=== PATIENT | female | born 2000 | race Caucasian/White ===

== ENCOUNTER 2023-04-19 13:00 | Outpatient (AMB) | payer MEDICAID, SELFPAY ==
--- NOTE | 2023-04-19 13:35 | MHC.OFFVIS ---
Intake Vital Signs 04/19/23 13:36 BP 100/70 Blood Pressure Location Lt brachial Position Sitting Pulse 70 Pulse Oximetry (%) 99 Intake Visit Reasons: MAT INTAKE, interested in sublocade Allergies No Known Allergies Allergy (Unverified 06/11/20 18:17) MAT Intake Nursing Intake Reason for visit: Pt presents for MAT Intake, interested in Sublocade. Pt started on Suboxone 2mg qd last week at [facility]. Are you currently using?: Yes What are you taking?: Fentanyl pressed pills When was your last use?: 4 days ago How much?: 1 pill, typically 10-15 pills daily, and/or 1 gram fentanyl rock (pre pressed fentanyl powder) Current PCP: In [place], [place] Date of last visit: Last year Referral Source: [facility] Substance Abuse History Substance Abuse History (includes route, frequency and quantity): Fentanyl (Fentanyl pressed pills or rock 1 gram to 10-15 pills daily, past 5 years, decreased use past 3 weeks, [place]) Age of first use: 17 years old Social History Do you have a support system?: Yes, Father Current mode of transportation?: Yes, Father Where are you currently residing?: [place], lives with Father Are you using contraception?: No IV Drug Use Have you ever shared needles?: No Have you ever belonged to a needle exchange program?: No Do you buy needles at a pharmacy?: No Have you ever overdosed?: Yes Number of lifetime overdoses: 1 Have you ever been hospitalized for an overdose?: No Was Naloxone administered?: Yes Recovery History What is your longest time in recovery?: Pt reports past 2-3 months, cut down alot, 2-3 pills daily When was the last time you were in recovery?: 2-3 months decreased udse Have you ever had inpatient treatment for your substance abuse disorder?: No Have you been in an inpatient Rehab/Shelter house?: No Have you been in an outpatient Methadone Maintenance program?: No Have you been in an outpatient Suboxone Maintenance program?: Yes (Pt reports in the past was on BUP films in [facility]) Have you been in an AA/NA support program?: No Have you had a Recovery Support Nut Sheller Machine Operator?: No Have you had Peer Support?: Yes (Pt states Dad supportive of recovery) Behavioral Health History Do you have a current provider? If so, who?: None BH diagnosis: None History of other addictive behavior: None History of inpatient psychiatric hospitalization? If so, how many? Most Recent? Where?: None History of self harming thoughts?: No History of homicidal or suicidal intentions?: No Medical Conditions Endocarditis?: No Skin Infection: No Seizure related to withdrawal or overdose: No Head or brain injury: No Hepatitis A (if yes, have you been treated?): No Hepatitis B (if yes, have you been treated?): No Hepatitis C (if yes, have you been treated?): No HIV (if yes, have you been treated?): No TB (if yes, have you been treated?): No Other: Yes (Heart disease; seizure d/o) Do you have any chronic pain conditions?: None Details: Current meds: 2mg BUP qd hydroxyzine 25mg TID Pramipexole 0.125 mg tablet TID HPI MAT INTAKE, interested in sublocade HPI Details Patient presents for intake and evaluation 4-5 days since last use. Had been started on Suboxone 2 mg b.i.d. at a not other clinic. She reports ongoing withdrawal symptoms and cravings. Patient somewhat guarded and appearing anxious. 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 Unsure with those medications are. States that she stop taking medications once she turned 17. Social history: one child 5 years- not working --just moved back here from [facility]--father. Lives with her father. Behavioral health history: Reports history of being treated for possibly PTSD, patient does not recall but states this was all occurring when she was a teenager. Review of Systems Const Reports as per HPI, Reports body aches, Reports lethargy and Reports malaise Physical Exam Vital Signs: Last Vital Signs Pulse 70 04/19/23 13:36 BP 100/70 04/19/23 13:36 Pulse Ox 99 04/19/23 13:36 Const General: cooperative and anxious Nutritional Appearance: thin Orientation/consciousness: patient oriented x3 Neuro General: patient oriented x3 Psych Appearance: grossly normal Speech and movement: Clear speech present Affect: Anxious affect present Attitude: cooperative and Guarded attititude/behavior present Insight: Fair insight present (Psych) Judgement: Fair judgement present (Psych) Results AMB 14 Panel Urine Drug Screen Urine Marijuana (THC) Negative Last Edit by Ilda Callaway RN on 04/19/23 15:19 Urine Cocaine Negative Last Edit by Ilda Callaway RN on 04/19/23 15:19 Urine Morphine Negative Last Edit by Ilda Callaway RN on 04/19/23 15:19 Urine Methamphetamine Negative Last Edit by Ilda Callaway RN on 04/19/23 15:19 Urine Amphetamine Negative Last Edit by Ilda Callaway RN on 04/19/23 15:19 Urine Benzodiazepine Negative Last Edit by Ilda Callaway RN on 04/19/23 15:19 Urine Barbiturates Negative Last Edit by Ilda Callaway RN on 04/19/23 15:19 Urine Methadone Negative Last Edit by Ilda Callaway RN on 04/19/23 15:19 Urine Buprenorphine Positive Last Edit by Ilda Callaway RN on 04/19/23 15:19 Urine Tricyclic Antidepressant Negative Last Edit by Ilda Callaway RN on 04/19/23 15:19 Urine MDMA Negative Last Edit by Ilda Callaway RN on 04/19/23 15:19 Urine Oxycodone Negative Last Edit by Ilda Callaway RN on 04/19/23 15:19 Urine Phencyclidine Negative Last Edit by Ilda Callaway RN on 04/19/23 15:19 Urine Propoxyphene Negative Last Edit by Ilda Callaway RN on 04/19/23 15:19 Results Reviewed Results Reviewed: Laboratory Last Values POC Urine Buprenorphine Positive 04/19/23 15:14 POC Urine Morphine Negative 04/19/23 15:14 POC Urine Oxycodone Negative 04/19/23 15:14 POC Urine Methadone Negative 04/19/23 15:14 POC Urine Propoxyphene Negative 04/19/23 15:14 POC Urine Barbiturates Negative 04/19/23 15:14 POC U Tricyclic Antidpr Negative 04/19/23 15:14 POC Urine PCP Negative 04/19/23 15:14 POC Ur Amphetamines Negative 04/19/23 15:14 POC Ur Methamphetamine Negative 04/19/23 15:14 POC Urine MDMA Negative 04/19/23 15:14 POC Ur Benzodiazepine Negative 04/19/23 15:14 POC Urine Cocaine Negative 04/19/23 15:14 POC Ur Marijuana (THC) Negative 04/19/23 15:14 Assessment & Plan Assessment & Plan (1) Opioid use disorder: Code(s): F11.90 - Opioid use, unspecified, uncomplicated Plan: Suboxone dose increase to 4 mg b.i.d. Overdose prevention discussion Lab work to be completed at next visit Patient has Narcan at home Orders: Orders AMB 14 Panel Urine Drug Screen 04/19/23 Z51.81 - Encounter for therapeutic drug level monitoring Medications: New buprenorphine-naloxone 4-1 mg (Suboxone) 1 film sublingual BID 6 ea 0RF pramipexole 0.125 mg PO TID PRN 21 tabs 0RF restless leg(s) Coding Level of Care Code New Pt Level 4 (45975) Diagnoses Opioid use disorder F11.90
[2023-04-19 13:36] VITALS: BP 100/70; PULSE 70; O2SAT 99
== END 2023-04-19 14:04 | disposition home or self-care (01) ==
LOC: HO.HCC 13:00
PROVIDERS: Visit Provider Nurse Practitioner Psychiatric/Mental Health
DX: F11.90 Opioid use, unspecified, uncomplicated (principal)
CPT/HCPCS: 99204

== ENCOUNTER → 2023-04-19 13:00 | Outpatient (BNVA) | payer OTHER, SELFPAY | PROVIDERS: Visit Provider Nurse Practitioner Psychiatric/Mental Health | DX: Z51.81 Encounter for therapeutic drug level monitoring (principal); F11.20 Opioid dependence, uncomplicated | CPT/HCPCS: 80305; 99204 ==

== ENCOUNTER 2023-08-30 10:26 | Outpatient (AMB) | payer OTHER, SELFPAY ==
--- NOTE | 2023-08-30 10:30 | MHC.AM.SUB ---
Intake Vital Signs 08/30/23 10:31 BP 110/72 Blood Pressure Location Lt radial Position Sitting Pulse 99 Pulse Source Pulse Oximeter Pulse Oximetry (%) 99 Oxygen Delivery Method Room Air Intake Visit Reasons: mat intake Intake Note: the patient presents for a mat visit Government Operations Consultant Required: No Allergies No Known Allergies Allergy (Unverified 08/30/23 10:31) Do you need a note to return to daycare/school/sports/work: No HPI mat intake HPI Details Patient presents to re-establish care for OUD Last use 4 days ago --body aches and runny nose and teary eyes no overdoses since last visit LMP 2 months ago Living with father. Her son is staying with her mother in [place]. Tearful during visit. Reporting her goal is to transition to Sublocade Review of Systems Const Reports as per HPI, Reports chills, Reports difficulty sleeping, Reports lethargy and Reports malaise Psych Reports anxiety and Reports anhedonia Physical Exam Vital Signs: Last Vital Signs Pulse 99 08/30/23 10:31 BP 110/72 08/30/23 10:31 Pulse Ox 99 08/30/23 10:31 Oxygen Delivery Method Room Air 08/30/23 10:31 Const General: cooperative, anxious and tired appearing Nutritional Appearance: average body habitus Psych Insight: Fair insight present (Psych) Judgement: Fair judgement present (Psych) Results AMB 14 Panel Urine Drug Screen Urine Marijuana (THC) Negative Last Edit by Zee Stovall CMA on 08/30/23 10:57 Urine Cocaine Negative Last Edit by Zee Stovall CMA on 08/30/23 10:57 Urine Morphine Negative Last Edit by Zee Stovall CMA on 08/30/23 10:57 Urine Methamphetamine Negative Last Edit by Zee Stovall CMA on 08/30/23 10:57 Urine Amphetamine Negative Last Edit by Zee Stovall CMA on 08/30/23 10:57 Urine Benzodiazepine Negative Last Edit by Zee Stovall CMA on 08/30/23 10:57 Urine Barbiturates Negative Last Edit by Zee Stovall CMA on 08/30/23 10:57 Urine Methadone Negative Last Edit by Zee Stovall CMA on 08/30/23 10:57 Urine Buprenorphine Negative Last Edit by Zee Stovall CMA on 08/30/23 10:57 Urine Tricyclic Antidepressant Negative Last Edit by Zee Stovall CMA on 08/30/23 10:57 Urine MDMA Negative Last Edit by Zee Stovall CMA on 08/30/23 10:57 Urine Oxycodone Negative Last Edit by Zee Stovall CMA on 08/30/23 10:57 Urine Phencyclidine Negative Last Edit by Zee Stovall CMA on 08/30/23 10:57 Urine Propoxyphene Negative Last Edit by Zee Stovall CMA on 08/30/23 10:57 AMB Test Urine AMB Test Urine Negative Last Edit by Zee Stovall CMA on 08/30/23 10:58 Results Reviewed Results Reviewed: Laboratory Last Values [facility] Negative 08/30/23 10:53 POC Urine Buprenorphine Negative 08/30/23 10:53 POC Urine Morphine Negative 08/30/23 10:53 POC Urine Oxycodone Negative 08/30/23 10:53 POC Urine Methadone Negative 08/30/23 10:53 POC Urine Propoxyphene Negative 08/30/23 10:53 POC Urine Barbiturates Negative 08/30/23 10:53 POC U Tricyclic Antidpr Negative 08/30/23 10:53 POC Urine PCP Negative 08/30/23 10:53 POC Ur Amphetamines Negative 08/30/23 10:53 POC Ur Methamphetamine Negative 08/30/23 10:53 POC Urine MDMA Negative 08/30/23 10:53 POC Ur Benzodiazepine Negative 08/30/23 10:53 POC Urine Cocaine Negative 08/30/23 10:53 POC Ur Marijuana (THC) Negative 08/30/23 10:53 Assessment & Plan Assessment & Plan (1) Opioid use disorder: Code(s): F11.90 - Opioid use, unspecified, uncomplicated Plan: restart suboxone at 4mg BID comfort medications ordered follow up one week Orders: Orders Comprehensive Met. Panel Today F11.90 - Opioid use, unspecified, uncomplicated Hepatitis A,B,C Profile Today F11.90 - Opioid use, unspecified, uncomplicated AMB HCG Urine Test Today Z32.01 - Encounter for test, result positive, Z32.02 - Encounter for test, result negative HIV Ab/Ag Today F11.90 - Opioid use, unspecified, uncomplicated AMB 14 Panel Urine Drug Screen Today Z51.81 - Encounter for therapeutic drug level monitoring Medications: New trazodone 50 mg PO BEDTIME PRN 10 tabs 0RF sleep Refilled buprenorphine-naloxone 4-1 mg (Suboxone) 1 film sublingual BID 14 ea 0RF pramipexole 0.125 mg PO TID PRN 21 tabs 0RF restless leg(s) Coding Level of Care Code Est Pt Level 4 (70723) Diagnoses Opioid use disorder F11.90
[2023-08-30 10:31] VITALS: BP 110/72; PULSE 99; O2SAT 99
== END 2023-08-30 10:47 | disposition home or self-care (01) ==
PROVIDERS: Visit Provider Nurse Practitioner Psychiatric/Mental Health
DX: F11.90 Opioid use, unspecified, uncomplicated (principal)
CPT/HCPCS: 99214

== ENCOUNTER → 2023-08-30 10:26 | Outpatient (BNVA) | payer OTHER, SELFPAY | PROVIDERS: Visit Provider Nurse Practitioner Family | DX: Z51.81 Encounter for therapeutic drug level monitoring (principal); F11.20 Opioid dependence, uncomplicated | CPT/HCPCS: 80305; 81025; 99212 ==

== ENCOUNTER 2023-09-06 10:44 | Outpatient (AMB) | payer OTHER, SELFPAY ==
--- NOTE | 2023-09-06 10:46 | A.OFFVIS_ITS ---
Intake Vital Signs 09/06/23 10:49 BP 124/78 Blood Pressure Location Lt radial Position Sitting Pulse 95 Pulse Source Pulse Oximeter Pulse Oximetry (%) 98 Oxygen Delivery Method Room Air Intake Visit Reasons: MAT VISIT Intake Note: the patient presents for a mat visit Screening Nurse Required: No Allergies No Known Allergies Allergy (Unverified 09/06/23 10:54) Do you need a note to return to daycare/school/sports/work: No HPI MAT VISIT HPI Details Patient presents for follow up Reports feeling somewhat better, but unable to tolerate 4mg BID. She gets very nauseous and vomits. Has zofran, not helpful. Would like to move forward with the injection Review of Systems Const Reports as per HPI Physical Exam Vital Signs: Last Vital Signs Pulse 95 09/06/23 10:49 BP 124/78 09/06/23 10:49 Pulse Ox 98 09/06/23 10:49 Oxygen Delivery Method Room Air 09/06/23 10:49 Const General: cooperative, anxious and tired appearing Nutritional Appearance: average body habitus Psych Insight: Fair insight present (Psych) Judgement: Fair judgement present (Psych) Assessment & Plan Assessment & Plan (1) Opioid use disorder: Code(s): F11.90 - Opioid use, unspecified, uncomplicated Plan: * continue suboxone at current dose --as she can tolerate * Brixadi ordered * follow up via telehealth next week Medications: New buprenorphine ER (Brixadi Monthly) 64 mg (0.18 mL) subcut Q28D 0.18 mL 5RF Refilled buprenorphine-naloxone 4-1 mg (Suboxone) 1 film sublingual BID 14 ea 0RF Coding Level of Care Code Est Pt Level 3 (44392) Diagnoses Opioid use disorder F11.90
[2023-09-06 10:49] VITALS: BP 124/78; PULSE 95; O2SAT 98
== END 2023-09-06 11:28 | disposition home or self-care (01) ==
PROVIDERS: Visit Provider Nurse Practitioner Psychiatric/Mental Health
DX: F11.90 Opioid use, unspecified, uncomplicated (principal)
CPT/HCPCS: 99213

== ENCOUNTER → 2023-09-06 10:44 | Outpatient (BNVA) | payer OTHER, SELFPAY | PROVIDERS: Visit Provider Nurse Practitioner Psychiatric/Mental Health | DX: F11.20 Opioid dependence, uncomplicated (principal) | CPT/HCPCS: 99212 ==

== ENCOUNTER 2023-09-11 09:06 | Outpatient (AMB) | payer OTHER, SELFPAY ==
--- NOTE | 2023-09-11 09:08 | A.OFFVIS_ITS ---
Intake Vital Signs 09/11/23 09:13 BP 110/70 Blood Pressure Location Lt radial Position Sitting Pulse 96 Pulse Source Pulse Oximeter Pulse Oximetry (%) 99 Oxygen Delivery Method Room Air Intake Visit Reasons: MAT VISIT Intake Note: the patient presents fora mat visit Trial Paralegal Required: No Allergies No Known Allergies Allergy (Unverified 09/11/23 09:14) Do you need a note to return to daycare/school/sports/work: No HPI MAT VISIT HPI Details Patient presents for follow up No change to dose Still having difficulty with tolerating PO Buprenorphine Insurance denied Brixadi--will order Sublocade Review of Systems Const Reports as per HPI Physical Exam Vital Signs: Last Vital Signs Pulse 96 09/11/23 09:13 BP 110/70 09/11/23 09:13 Pulse Ox 99 09/11/23 09:13 Oxygen Delivery Method Room Air 09/11/23 09:13 Const General: cooperative, anxious and tired appearing Nutritional Appearance: average body habitus Psych Insight: Fair insight present (Psych) Judgement: Fair judgement present (Psych) Assessment & Plan Assessment & Plan (1) Opioid use disorder: Code(s): F11.90 - Opioid use, unspecified, uncomplicated Plan: * continue suboxone at current dose --as she can tolerate * Sublocade ordered * follow will be scheduled once injection is shipped Coding Level of Care Code Est Pt Level 3 (23578) Diagnoses Opioid use disorder F11.90
[2023-09-11 09:13] VITALS: BP 110/70; PULSE 96; O2SAT 99
== END 2023-09-11 09:35 | disposition home or self-care (01) ==
PROVIDERS: Visit Provider Nurse Practitioner Psychiatric/Mental Health
DX: F11.90 Opioid use, unspecified, uncomplicated (principal)
CPT/HCPCS: 99213

== ENCOUNTER → 2023-09-11 09:06 | Outpatient (BNVA) | payer OTHER, SELFPAY | PROVIDERS: Visit Provider Nurse Practitioner Psychiatric/Mental Health | DX: F11.20 Opioid dependence, uncomplicated (principal) | CPT/HCPCS: 99212 ==

== ENCOUNTER 2023-09-28 09:51 | Outpatient (AMB) | payer OTHER, SELFPAY ==
--- NOTE | 2023-09-28 10:21 | AM.OFFVISNUR ---
Intake Intake Visit Reasons: Sub Inj Allergies No Known Allergies Allergy (Unverified 09/11/23 09:14) Results AMB 14 Panel Urine Drug Screen Urine Marijuana (THC) Negative Last Edit by Nayeli Latif RN on 09/28/23 10:25 Urine Cocaine Negative Last Edit by Nayeli Latif RN on 09/28/23 10:25 Urine Morphine Negative Last Edit by Nayeli Latif RN on 09/28/23 10:25 Urine Methamphetamine Negative Last Edit by Nayeli Latif RN on 09/28/23 10:25 Urine Amphetamine Negative Last Edit by Nayeli Latif RN on 09/28/23 10:25 Urine Benzodiazepine Negative Last Edit by Nayeli Latif RN on 09/28/23 10:25 Urine Barbiturates Negative Last Edit by Nayeli Latif RN on 09/28/23 10:25 Urine Methadone Negative Last Edit by Nayeli Latif RN on 09/28/23 10:25 Urine Buprenorphine Negative Last Edit by Nayeli Latif RN on 09/28/23 10:25 Urine Tricyclic Antidepressant Negative Last Edit by Nayeli Latif RN on 09/28/23 10:25 Urine MDMA Negative Last Edit by Nayeli Latif RN on 09/28/23 10:25 Urine Oxycodone Negative Last Edit by Nayeli Latif RN on 09/28/23 10:25 Urine Phencyclidine Negative Last Edit by Nayeli Latif RN on 09/28/23 10:25 Urine Propoxyphene Negative Last Edit by Nayeli Latif RN on 09/28/23 10:25 Coding Assessment & Plan Assessment & Plan Orders: Orders AMB 14 Panel Urine Drug Screen Today F11.90 - Opioid use, unspecified, uncomplicated AMB HCG Urine Test Today F11.90 - Opioid use, unspecified, uncomplicated
--- NOTE | 2023-09-28 10:25 | AM.OFFVISNUR ---
Intake Intake Visit Reasons: Sub Inj Allergies No Known Allergies Allergy (Unverified 09/11/23 09:14) Results AMB 14 Panel Urine Drug Screen Urine Marijuana (THC) Negative Last Edit by Nayeli Latif RN on 09/28/23 10:25 Urine Cocaine Negative Last Edit by Nayeli Latif RN on 09/28/23 10:25 Urine Morphine Negative Last Edit by Nayeli Latif RN on 09/28/23 10:25 Urine Methamphetamine Negative Last Edit by Nayeli Latif RN on 09/28/23 10:25 Urine Amphetamine Negative Last Edit by Nayeli Latif RN on 09/28/23 10:25 Urine Benzodiazepine Negative Last Edit by Nayeli Latif RN on 09/28/23 10:25 Urine Barbiturates Negative Last Edit by Nayeli Latif RN on 09/28/23 10:25 Urine Methadone Negative Last Edit by Nayeli Latif RN on 09/28/23 10:25 Urine Buprenorphine Negative Last Edit by Nayeli Latif RN on 09/28/23 10:25 Urine Tricyclic Antidepressant Negative Last Edit by Nayeli Latif RN on 09/28/23 10:25 Urine MDMA Negative Last Edit by Nayeli Latif RN on 09/28/23 10:25 Urine Oxycodone Negative Last Edit by Nayeli Latif RN on 09/28/23 10:25 Urine Phencyclidine Negative Last Edit by Nayeli Latif RN on 09/28/23 10:25 Urine Propoxyphene Negative Last Edit by Nayeli Latif RN on 09/28/23 10:25 AMB Test Urine AMB Test Urine Negative Last Edit by Nayeli Latif RN on 09/28/23 10:28 Coding Assessment & Plan Assessment & Plan Orders: Orders AMB 14 Panel Urine Drug Screen Today F11.90 - Opioid use, unspecified, uncomplicated AMB HCG Urine Test Today F11.90 - Opioid use, unspecified, uncomplicated
== END 2023-09-28 11:02 | disposition home or self-care (01) ==
DX: F11.90 Opioid use, unspecified, uncomplicated (principal)

== ENCOUNTER → 2023-09-28 09:51 | Outpatient (BNVA) | payer OTHER, SELFPAY | DX: F11.20 Opioid dependence, uncomplicated (principal) | CPT/HCPCS: 80305; 81025; 96372; Q9992 ==

== ENCOUNTER 2023-10-26 10:01 | Outpatient (AMB) | payer OTHER, SELFPAY ==
--- NOTE | 2023-10-26 10:04 | AM.OFFVISNUR ---
Intake Vital Signs 10/26/23 11:55 BP 100/60 Blood Pressure Location Lt brachial Position Sitting Respiration 19 Pulse 66 Pulse Source Pulse Oximeter Pulse Oximetry (%) 99 Oxygen Delivery Method Room Air Intake Visit Reasons: Sub Inj Allergies No Known Allergies Allergy (Unverified 09/11/23 09:14) Nursing Note Patient here today for sublocade injection. She is smiling, states I have never felt so good, this injection is great! She said she has been sleeping great and was in good spirits. A+O x4, speaking in clear/full sentences. Next visit will see Margarita for check in . Office Meds Sublocade 100 mg/0.5 mL solution,extended release subcutaneous syringe Performing Provider: Mena Padilla NP Performing Location: [facility] Administered by: Madie Mathews RN on 10/26/23 11:54 Dose Route Admin Location Dispensed Lot Number Expiration Date [facility] Guard Range 100 mg subcut RLQ 0.5 mL [id number] 10/26/24 [address]-9 [employer]. Results AMB Test Urine AMB Test Urine Negative Last Edit by Madie Mathews RN on 10/26/23 11:57 Coding Assessment & Plan Assessment & Plan Orders: Orders AMB HCG Urine Test Today F11.90 - Opioid use, unspecified, uncomplicated AMB Buprenorphine Injection - Patient Supplied Today F11.90 - Opioid use, unspecified, uncomplicated
[2023-10-26 11:55] VITALS: BP 100/60; PULSE 66; RESP 19; O2SAT 99
== END 2023-10-26 10:31 | disposition home or self-care (01) ==
DX: F11.90 Opioid use, unspecified, uncomplicated (principal)

== ENCOUNTER → 2023-10-26 10:01 | Outpatient (BNVA) | payer OTHER, SELFPAY | DX: F11.90 Opioid use, unspecified, uncomplicated (principal) | CPT/HCPCS: 81025; 96372; Q9992 ==

== ENCOUNTER 2024-08-30 16:22 | Emergency (ER) | payer OTHER, SELFPAY ==
--- NOTE | ~2024-08-30 | US_ITS ---
EXAMINATION: US OBSTETRICAL ULTRASOUND CLINICAL INFORMATION: Vaginal bleeding COMPARISON: None available. LMP: Unknown. TECHNIQUE: Ultrasound of the maternal pelvis is performed using transabdominal and transvaginal transducers. Transvaginal imaging is performed due to inadequate visualization transabdominally. M-mode Doppler is also performed. FINDINGS: Gestational sac measures 1.0 x 0.4 x 0.8 cm dating to 5 weeks 3 days. No yolk sac is identified. Possible subchorionic hemorrhage only visualized on the endovaginal views. MATERNAL ADNEXA: The right maternal ovary measures 2.2 x 1.4 x 1.9 cm. 1.2 cm cyst The left maternal ovary measures 3.0 x 1.8 x 2.1 cm. There is a corpus luteum. There is no significant maternal adnexal mass. No maternal pelvic ascites. US/US OB pelvic and transvaginal IMPRESSION: Gestational sac dating to 5 weeks 3 days. No yolk sac identified. There is a possible subchorionic hemorrhage. Recommend correlation with short interval ultrasound and serial beta hCG levels. Electronically signed by: Nae Batista MD 08/30/2024 08:40 PM [facility]
[2024-08-30 16:47] VITALS: BP 124/85; PULSE 85; RESP 16; TEMP 37; O2SAT 100; BMI 22.9
--- NOTE | 2024-08-30 16:49 | ED_ITS ---
HPI - General Adult General Chief complaint: Vaginal Bleeding Stated complaint: Miscarriage? Time Seen by Provider: 08/30/24 21:59 Source: patient and old records reviewed Mode of arrival: ambulatory Limitations: no limitations History of Present Illness ED Provider: Slick MARTINEZ narrative: This is a 23-year-old female, past medical history including heart failure, hyperthyroidism, who presents to the hospital for vaginal bleeding. Patient reports that she recently just went to an urgent care per work physical where she found out she was . She has not had an ultrasound, and she does not know how far along she is. Last night she began feeling intense cramping, that she reports feels like menstrual cramps pain, and this morning she had nausea, vomiting she began bleeding heavily. She reports the pain is on the right side of her abdomen, in the right side of her lower back. She felt feverish last night. Patient states that at baseline her periods are very easy, and only lasts 1-3 days, an usually does not have cramps, so this is very unusual for her. She has been having to use menstrual pads. She reports not she had no complications with her 1st , however she was high risk given her heart failure. Patient does have burning with urination and she reports a foul odor, and is aware that she has a UTI which was found at urgent care recently however she has not picked up her antibiotics yet. Patient reports that her partner is unfaithful to her, and has another person at this time, and she is interested in being tested for STDs. Patient has not had any abdominal surgeries. 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 Related Data Previous Rx's ?Medication ?Instructions ?Recorded pramipexole 0.125 mg tablet 0.125 mg PO TID PRN restless 08/30/23 leg(s) #21 tabs trazodone 50 mg tablet 50 mg PO BEDTIME PRN sleep #10 tabs 08/30/23 buprenorphine 4 mg-naloxone 1 mg 1 film sublingual BID #14 ea 09/06/23 sublingual film (Suboxone) buprenorphine 64 mg/0.18 mL 64 mg (0.18 mL) subcut Q28D #0.18 09/06/23 solution,exten.rel.subcutaneous mL syringe (Brixadi Monthly) buprenorphine 100 mg/0.5 mL 100 mg (0.5 mL) subcut .q 4 weeks 09/11/23 solution,exten.rel.subcutaneous #0.5 mL syringe (Sublocade) Allergies Allergy/AdvReac Type Severity Reaction Status Date / Time No Known Allergies Allergy Verified 08/30/24 16:51 Review of Systems 2 Constitutional: Constitutional: Reports weight gain Gastrointestinal: Gastrointestinal: Reports constipation Integumentary/Breasts: Skin/Breast: Reports breast swelling and Reports breast skin changes [facility] Social History Social History Advance Directives: No Advance Directives Information Provided: No Physical Exam ED Vital Signs: Vital Signs - 24 hr 08/30/24 16:47 Temperature 98.6 F Pulse Rate 85 Respiratory Rate 16 Blood Pressure 124/85 Pulse Oximetry 100 Oxygen Delivery Method Room Air BMI result Body Mass Index 22.9 Const General: cooperative and no acute distress GI Other: Soft, nondistended abdomen No overlying skin changes Pain with palpation of the upper right quadrant. No CVA tenderness bilaterally Inspection: Yes normal to inspection Course Course Course Narrative: This is an RME done by KRISTIN Forbes: Additional HPI, ROS, PE not included below will be deferred to primary provider. 23 yo f hx of heart failure, presents w/ cramping and vaginal bleeding x 1 day noted blood when she went in the shower. Hx of irregular menses LMP unclear. Medical Decision Making Medical Decision Making [facility] Narrative: 3-year-old female presents for evaluation of concern for a miscarriage. She is . She had labs and an ultrasound ordered. Her serum hCG is 5925 which is appropriate for the size of the gestational sac. However on the ultrasound there is no yolk sac. Given the amount of bleeding the patient describes, it is likely that she is having a miscarriage. Her blood type is O positive and she does not need RhoGAM. She was asked to return in 48 hours for a repeat hCG. Differential Diagnosis Differential Diagnoses: The differential diagnosis associated with the presentation includes Missed Threatened Uterine fibroids Ectopic Ovarian cysts Lab Data [facility] Lab Attestation statement: I reviewed the patient's lab results. See above 08/30/24 17:15 08/30/24 17:15 Labs: Lab Results 08/30/24 Range/Units 17:15 WBC 6.7 (4.8-10.8) X10*3/uL RBC 4.56 (4.20-5.50) X10*6/uL Hgb 13.2 (12.0-16.0) g/dl Hct 38.0 (37.0-47.0) % MCV 83.3 (80.0-98.0) fL MCH 28.9 (27.0-33.0) pg MCHC 34.7 (31.0-35.0) g/dl RDW 12.4 (11.0-16.0) % Plt Count 247 (160-400) X10*3/uL MPV 10.6 (9.4-12.3) fL Immature Gran % (Auto) 0.4 (0.0-0.4) % Neut % (Auto) 72.0 (45-73) % Lymph % (Auto) 21.0 (20-40) % [place] % (Auto) 6.1 (2-11) % Eos % (Auto) 0.4 (0-4) % Baso % (Auto) 0.1 (0-2) % Lymph # (Auto) 1.4 (1.2-4.9) X10*3/uL [place] # (Auto) 0.4 (0.1-1.2) X10*3/uL Eos # (Auto) 0.0 (0.0-0.4) X10*3/uL Baso # (Auto) 0.0 (0.0-0.2) X10*3/uL Abs Immat Gran (auto) 0.03 (0.00-0.03) X10*3/uL Absolute Neuts (auto) 4.8 (2.0-8.3) x10*3/uL Absolute Nucleated RBC 0.000 (0.0-0.012) X10*3/uL Nucleated RBC % (auto) 0.0 (0.0-0.2) /100WBC PT 13.0 H (10.9-12.4) SEC INR 1.1 (0.9-1.1) Sodium 138 (135-145) mmol/L Potassium 4.6 (3.3-5.1) mmol/L Chloride 108 (96-108) mmol/L Carbon Dioxide 23 (22-29) mmol/L Anion Gap 12 (12-20) BUN 12 (9-16) mg/dL Creatinine 0.70 (0.5-1.4) mg/dL Estim Creat Clear Calc 106.9 Estimated GFR > 60 Random Glucose 112 (60-115) mg/dL Calcium 9.3 (8.4-10.2) mg/dL Magnesium 2.0 (1.6-2.6) mg/dL Total Bilirubin 0.6 (0.0-1.0) mg/dL AST 20 (5-31) U/L ALT 18 (0-31) U/L Alkaline Phosphatase 82 (39-117) U/L Total Protein 8.0 (6.5-8.0) g/dL Albumin 4.6 (3.5-5.0) g/dL Beta HCG, Quant 5925 mIU/mL Blood Type O Positive Radiology Impression Discussion of test interpretation with radiology: I have reviewed the radiologist's reading. Radiologist Impression: FINDINGS: Gestational sac measures 1.0 x 0.4 x 0.8 cm dating to 5 weeks 3 days. No yolk sac is identified. Possible subchorionic hemorrhage only visualized on the endovaginal views. MATERNAL ADNEXA: The right maternal ovary measures 2.2 x 1.4 x 1.9 cm. 1.2 cm cyst The left maternal ovary measures 3.0 x 1.8 x 2.1 cm. There is a corpus luteum. There is no significant maternal adnexal mass. No maternal pelvic ascites. US/US OB pelvic and transvaginal IMPRESSION: Gestational sac dating to 5 weeks 3 days. No yolk sac identified. There is a possible subchorionic hemorrhage. Recommend correlation with short interval ultrasound and serial beta hCG levels. Electronically signed by: Nae Batista MD 08/30/2024 08:40 PM [facility] Discharge Plan Discharge Clinical Impression: Threatened Patient Disposition: Home, Self-Care Instructions: Threatened Miscarriage (ED) Additional Instructions: Your hormone today was 5925 This number should double every 48 hours and a healthy . Please return in 48 hours to have a repeat lab draw for your hCG Your ultrasound shows that you are 5 weeks and 3 days by the size. However there are turning findings on the ultrasound in that it does not appear to be developing appropriately It is possible that you are having a miscarriage Follow-up with your OBGYN, return for new or worsening symptoms Prescriptions: No Action Sublocade 100 mg/0.5 mL solution, extended rel syringe 100 mg subcut .q 4 weeks Qty: 0.5 3RF buprenorphine-naloxone [Suboxone] 4-1 mg film 1 film sublingual BID Qty: 14 0RF Brixadi 64 mg/0.18 mL solution, extended rel syringe 64 mg subcut Q28D Qty: 0.18 5RF pramipexole 0.125 mg tablet 0.125 mg PO TID PRN (Reason: restless leg(s)) Qty: 21 0RF trazodone 50 mg tablet 50 mg PO BEDTIME PRN (Reason: sleep) Qty: 10 0RF Print Language: Cymraes
[2024-08-30 17:20] LABS: MANUAL DIFF FLAG NO
[2024-08-30 17:21] LABS: Basophils Percent Auto 0.1 % (0-2); Eosinophils Percent Auto 0.4 % (0-4); Hemoglobin 13.2 g/dl (12.0-16.0); Imm Gran Abs Auto 0.03 X10*3/uL (0.00-0.03); Imm Gran Pct Auto 0.4 % (0.0-0.4); Lymphocytes Absolute Auto 1.4 X10*3/uL (1.2-4.9); Mean Corpuscular HGB Conc 34.7 g/dl (31.0-35.0); Mean Corpuscular Hemoglobin 28.9 pg (27.0-33.0); Mean Corpuscular Volume 83.3 fL (80.0-98.0); Mean Platelet Volume 10.6 fL (9.4-12.3); Monocytes Absolute Auto 0.4 X10*3/uL (0.1-1.2); Monocytes Percent Auto 6.1 % (2-11); Neutrophils Absolute Auto 4.8 x10*3/uL (2.0-8.3); Platelet Count 247 X10*3/uL (160-400); Red Blood Count 4.56 X10*6/uL (4.20-5.50); Red Cell Distribution Width 12.4 % (11.0-16.0); White Blood Count 6.7 X10*3/uL (4.8-10.8)
[2024-08-30 17:26] LABS: INTERNATIONAL NORM RATIO 1.1 (0.9-1.1)
[2024-08-30 17:46] LABS: Alanine Aminotransferase 18 U/L (0-31); Albumin Level 4.6 g/dL (3.5-5.0); Alkaline Phosphatase 82 U/L (39-117); Anion Gap 12 (12-20); Aspartate Amino Transferase 20 U/L (5-31); Bilirubin Total 0.6 mg/dL (0.0-1.0); Blood Urea Nitrogen 12 mg/dL (9-16); Calcium 9.3 mg/dL (8.4-10.2); Carbon Dioxide 23 mmol/L (22-29); Chloride 108 mmol/L (96-108); Creatinine Clr Calc Pharmacy 106.9; Estimated Glomerular Filt Rate > 60; Glucose Random 112 mg/dL (60-115); HCG Quantitative 5925 mIU/mL; Potassium 4.6 mmol/L (3.3-5.1); Sodium 138 mmol/L (135-145)
[2024-08-30 22:57] VITALS: BP 124/85; PULSE 85; RESP 16; TEMP 37; O2SAT 100
[2024-08-31 14:43] LABS: CT PCR NOT DETECTED (Not Detect.); NG PCR NOT DETECTED (Not Detect.)
== END 2024-08-30 22:57 | disposition home or self-care (01) ==
PROVIDERS: Physician Assistant; Emergency Provider Emergency Medicine
DX: O20.0 Threatened abortion (principal); Z3A.01 Less than 8 weeks gestation of pregnancy
CPT/HCPCS: 36415; 76801; 76817; 80053; 83735; 84702; 85025; 85610; 86900; 86901; 87491; 87591; 99283; 99284

== ENCOUNTER 2024-12-07 17:46 | Emergency (ER) | payer OTHER, SELFPAY ==
--- NOTE | ~2024-12-07 | US_ITS ---
CLINICAL HISTORY: abd pain ? OB Ultrasound Transabdominal Comparison: None Findings: Estimated gestational age by today's ultrasound: 19 weeks 3 days. Estimated date of delivery by today's ultrasound: 04/30/2025. Biometrics: BPD: 19 weeks 1 day HC: 18 weeks 5 days AC: 19 weeks 5 days FL: 20 weeks 0 day EFW: 306 g. Cardiac activity: 140 bpm. Placenta is posterior. No demonstrated evidence of previa or abruption. New amniotic fluid subjectively within normal limits. IMPRESSION: 1. Single intrauterine gestation estimated at 19 weeks 3 days by today's ultrasound criteria. This document has been electronically signed by: Cecilia Lin MD on 12/07/2024 20:30:50
--- NOTE | 2024-12-07 17:48 | ED_ITS ---
HPI - General Adult General Chief complaint: Abdominal Pain Stated complaint: ? Time Seen by Provider: 12/07/24 18:30 History of Present Illness ED Provider: Erlin Morrison MD HPI narrative: 24-year-old female with intermittent vaginal bleeding ongoing for several months. She tells me she was here in August was told she had miscarriage . She never followed up with OB documentation from that time states that she was to return for repeat beta hCG. The patient denies abdominal pain she has not felt movement. She has been smoking marijuana denies cigarette or alcohol use. Denies any other medical history or any acute symptoms other than subjective abdominal distention Related Data Previous Rx's ?Medication ?Instructions ?Recorded pramipexole 0.125 mg tablet 0.125 mg PO TID PRN restless 08/30/23 leg(s) #21 tabs trazodone 50 mg tablet 50 mg PO BEDTIME PRN sleep #10 tabs 08/30/23 buprenorphine 4 mg-naloxone 1 mg 1 film sublingual BID #14 ea 09/06/23 sublingual film (Suboxone) buprenorphine 64 mg/0.18 mL 64 mg (0.18 mL) subcut Q28D #0.18 09/06/23 solution,exten.rel.subcutaneous mL syringe (Brixadi Monthly) buprenorphine 100 mg/0.5 mL 100 mg (0.5 mL) subcut .q 4 weeks 09/11/23 solution,exten.rel.subcutaneous #0.5 mL syringe (Sublocade) vitamins no.144-folic 2 tab PO DAILY #60 tabs 12/07/24 acid 400 mcg chewable tablet () cefadroxil 500 mg capsule 500 mg PO BID 5 days #10 caps 12/08/24 Allergies Allergy/AdvReac Type Severity Reaction Status Date / Time No Known Allergies Allergy Verified 12/07/24 17:55 PMF Social History Social History Smoked in Last 30 Days: No Use of substances other than those prescribed or required for medical reasons: Yes Substance Use Type: Marijuana Advance Directives: No Advance Directives Information Provided: No Patient : Yes Physical Exam ED Vital Signs: Vital Signs - 24 hr 12/07/24 19:57 12/07/24 19:59 Temperature 98.1 F 98.1 F Pulse Rate 96 96 Respiratory Rate 18 18 Blood Pressure 110/65 110/65 Pulse Oximetry 99 99 Oxygen Delivery Method Room Air Room Air BMI result Body Mass Index 25.0 Const Other: EXAM: Gen: Alert, awake, well appearing, well hydrated. Head: Atraumatic Eyes: Anicteric, Normal conjunctiva. ENT: Moist mucosa, no pallor. Neck: Supple. Respiratory: Breathing comfortably, No distress.Clear to auscultation bilaterally, symmetric chest expansion, No wheeze, rales, ronchi. Cardiovascular: Regular rate and rhythm. No murmurs or rub. Well perfused periphery, warm extremities. No edema. Abdominal: Soft, no objective distension. No palpable masses or obvious organomegaly. No focal tenderness, no guarding, no rebound tenderness or other peritoneal findings. not obviously gravid : No flank tenderness. Neuro: Alert. Gross movement of all extremities intact. Vital signs: See flowsheet Course Course Course Narrative: RME performed by Nina Flor PA-C. Patient is a 24 year old assigned female at presenting to the emergency department with abdominal pain, vaginal bleeding, and positive test after being told she miscarried in August 2024. Detailed physical exam and review of systems are deferred to the commercial construction superintendent. Labs and imaging ordered. Patient placed back in the waiting room pending room availability and results. Medical Decision Making Medical Decision Making MDM Narrative: 24-year-old female now GI 2 P 1 proximally 19 weeks with appropriate fetus and heart rate here. Some preliminary labs sent she should follow up with OBGYN urgently. Smoking cessation counseled vitamin counseled. No acute emergent gynecologic or obstetric issues or other symptoms to address at this time ___ 12/08: bacteria in UA noted Rx keflex sent to pharmacy, I called patient on her listed number and her parent contact both are subscriber you have dialed is not in sercvice her employer number is not a real phone number. Discussed this issue with ED admin who will send certified letter to pt to inform her Lab Data 12/07/24 18:16 12/07/24 18:16 Labs: Lab Results 12/07/24 Range/Units 18:16 WBC 7.1 (4.8-10.8) X10*3/uL RBC 3.48 L D (4.20-5.50) X10*6/uL Hgb 10.3 L D (12.0-16.0) g/dl Hct 29.1 L D (37.0-47.0) % MCV 83.6 (80.0-98.0) fL MCH 29.6 (27.0-33.0) pg MCHC 35.4 H (31.0-35.0) g/dl RDW 13.0 (11.0-16.0) % Plt Count 200 (160-400) X10*3/uL MPV 10.8 (9.4-12.3) fL Immature Gran % (Auto) 0.6 H (0.0-0.4) % Neut % (Auto) 74.2 H (45-73) % Lymph % (Auto) 19.5 L (20-40) % [place] % (Auto) 5.1 (2-11) % Eos % (Auto) 0.6 (0-4) % Baso % (Auto) 0.0 (0-2) % Lymph # (Auto) 1.4 (1.2-4.9) X10*3/uL [place] # (Auto) 0.4 (0.1-1.2) X10*3/uL Eos # (Auto) 0.0 (0.0-0.4) X10*3/uL Baso # (Auto) 0.0 (0.0-0.2) X10*3/uL Abs Immat Gran (auto) 0.04 H (0.00-0.03) X10*3/uL Absolute Neuts (auto) 5.3 (2.0-8.3) x10*3/uL Absolute Nucleated RBC 0.000 (0.0-0.012) X10*3/uL Nucleated RBC % (auto) 0.0 (0.0-0.2) /100WBC Sodium 137 (135-145) mmol/L Potassium 3.4 D (3.3-5.1) mmol/L Chloride 110 H (96-108) mmol/L Carbon Dioxide 20 L (22-29) mmol/L Anion Gap 10 L (12-20) BUN 10 (9-16) mg/dL Creatinine 0.63 (0.5-1.4) mg/dL Estim Creat Clear Calc 127.6 Estimated GFR > 60 Random Glucose 81 (60-115) mg/dL Calcium 8.2 L D (8.4-10.2) mg/dL Magnesium 1.7 (1.6-2.6) mg/dL Total Bilirubin 0.2 (0.0-1.0) mg/dL AST 14 (5-31) U/L ALT 10 (0-31) U/L Alkaline Phosphatase 68 (39-117) U/L Total Protein 6.9 (6.5-8.0) g/dL Albumin 3.7 (3.5-5.0) g/dL Beta HCG, Quant 93039 mIU/mL Urine Color Yellow Urine Appearance Cloudy Urine pH 7.5 (5.0-9.0) Ur Specific [place] 1.025 (1.005-1.025) Urine Protein Negative (Neg-Trace) mg/dL Urine Glucose (UA) Negative (Negative) mg/dL Urine Ketones Trace (Negative) mg/dL Urine Blood Negative (Negative) Urine Nitrite Negative (Negative) Ur Leukocyte Esterase Trace H (Negative) Urine RBC 0-2 (0-2) /HPF Urine WBC 0-5 (0-5) /HPF Ur Squamous Epith Cells 0-2 (0-2) /HPF Urine Bacteria 4+ (None Seen) Hyaline Casts 0-2 (0-2) /LPF Influenza Type A (PCR) NEGATIVE (Negative) Influenza Type B (PCR) NEGATIVE (Negative) RSV RNA Qual (PCR) NEGATIVE (Negative) SARS-CoV-2 RNA (RT-PCR) NEGATIVE (Negative) Discharge Plan Discharge Clinical Impression: Second trimester fetus Patient Disposition: Home, Self-Care Instructions: (ED), at 19 to 22 Weeks (ED) Additional Instructions: DISCHARGE DIAGNOSES: , reassuring ultrasound 2nd trimester HISTORY OF PRESENTATION: subjective abdominal distention, regular vaginal bleeding EMERGENCY DEPARTMENT COURSE,TESTS, TREATMENTS: While in the ED today an ultrasound show the you were approximately 19 weeks with an appropriate movement and heart rate noted. Basic lab work was test that he had very mild anemia and no other actionable or urgent lab findings to address. You will need to make an appointment with OBGYN DISCHARGE MEDICATIONS: vitamin FOLLOW-UP: Call your primary or general physician soon as possible to discuss your symptoms, your ED visit and to discuss follow up plans prime broker call for urgent follow up as you had an you have not had any care and they will want to see you quickly INSTRUCTIONS & RETURN PRECAUTIONS: If any symptoms change first call your primary physician, if it is after-hours your primary doctors office should have a provider water control supervisor you can speak with. If the symptoms are severe or very concerning to you then call 911 or return to the ED. Erlin Morrison MD Emergency Physician [facility] Prescriptions: New 400 mcg tablet,chewable 2 tab PO DAILY Qty: 60 0RF cefadroxil 500 mg capsule 500 mg PO BID 5 Days Qty: 10 0RF No Action Sublocade 100 mg/0.5 mL solution, extended rel syringe 100 mg subcut .q 4 weeks Qty: 0.5 3RF buprenorphine-naloxone [Suboxone] 4-1 mg film 1 film sublingual BID Qty: 14 0RF Brixadi 64 mg/0.18 mL solution, extended rel syringe 64 mg subcut Q28D Qty: 0.18 5RF pramipexole 0.125 mg tablet 0.125 mg PO TID PRN (Reason: restless leg(s)) Qty: 21 0RF trazodone 50 mg tablet 50 mg PO BEDTIME PRN (Reason: sleep) Qty: 10 0RF Referrals: [facility] [place] Women's Services [Provider Group] Interventions: ED Discharge Assessment Last Done: 12/07/24 19:59 Discharge Date/Time: 12/07/24 20:00 Print Language: Nigerian
[2024-12-07 17:50] VITALS: BP 118/71; PULSE 102; RESP 18; TEMP 37.1; O2SAT 100; BMI 25.0
[2024-12-07 18:22] LABS: MANUAL DIFF FLAG NO
[2024-12-07 18:25] LABS: Appearance Urine Cloudy; Color Urine Yellow; Eosinophils Percent Auto 0.6 % (0-4); Glucose Urine UA Negative (Negative); Hematocrit 29.1 % (37.0-47.0); Hemoglobin 10.3 g/dl (12.0-16.0); Imm Gran Abs Auto 0.04 X10*3/uL (0.00-0.03); Imm Gran Pct Auto 0.6 % (0.0-0.4); Leukocyte Esterase Urine Trace (Negative); Lymphocytes Absolute Auto 1.4 X10*3/uL (1.2-4.9); Lymphocytes Percent Auto 19.5 % (20-40); Mean Corpuscular HGB Conc 35.4 g/dl (31.0-35.0); Mean Corpuscular Hemoglobin 29.6 pg (27.0-33.0); Mean Corpuscular Volume 83.6 fL (80.0-98.0); Mean Platelet Volume 10.8 fL (9.4-12.3); Monocytes Absolute Auto 0.4 X10*3/uL (0.1-1.2); Monocytes Percent Auto 5.1 % (2-11); Neutrophils Absolute Auto 5.3 x10*3/uL (2.0-8.3); Neutrophils Percent Auto 74.2 % (45-73); Nitrite Urine Negative (Negative); PH 7.5 (5.0-9.0); Platelet Count 200 X10*3/uL (160-400); Red Blood Count 3.48 X10*6/uL (4.20-5.50); Specific Gravity - Urine 1.025 (1.005-1.025); UMIC TRIGGER UACC YES; Urine Blood Negative (Negative); Urine Ketones Trace mg/dL (Negative); Urine Protein Negative (Neg-Trace); White Blood Count 7.1 X10*3/uL (4.8-10.8)
[2024-12-07 18:31] LABS: Bacteria Urine 4+ (None Seen); Hyaline Casts Urine 0-2 /LPF (0-2); RBC Urine 0-2 /HPF (0-2); Squamous Epithelial Cell Urine 0-2 /HPF (0-2); WBC Urine 0-5 /HPF (0-5)
[2024-12-07 19:00] LABS: Alanine Aminotransferase 10 U/L (0-31); Albumin Level 3.7 g/dL (3.5-5.0); Anion Gap 10 (12-20); Aspartate Amino Transferase 14 U/L (5-31); Bilirubin Total 0.2 mg/dL (0.0-1.0); Blood Urea Nitrogen 10 mg/dL (9-16); Calcium 8.2 mg/dL (8.4-10.2); Carbon Dioxide 20 mmol/L (22-29); Chloride 110 mmol/L (96-108); Creatinine Clr Calc Pharmacy 127.6; Estimated Glomerular Filt Rate > 60; Glucose Random 81 mg/dL (60-115); HCG Quantitative 13189 mIU/mL; Magnesium 1.7 mg/dL (1.6-2.6); Potassium 3.4 mmol/L (3.3-5.1); Sodium 137 mmol/L (135-145); Total Protein 6.9 g/dL (6.5-8.0)
[2024-12-07 19:11] LABS: Alkaline Phosphatase 68 U/L (39-117); Influenza A PCR NEGATIVE (Negative); Influenza B PCR NEGATIVE (Negative); Resp Syncy Virus RNA Qual PCR NEGATIVE (Negative); SARS COV2 PCR INHOUSE NEGATIVE (Negative)
[2024-12-07 19:57] VITALS: BP 110/65; PULSE 96; RESP 18; TEMP 36.7; O2SAT 99
[2024-12-07 19:59] VITALS: BP 110/65; PULSE 96; RESP 18; TEMP 36.7; O2SAT 99
--- NOTE | 2024-12-11 07:47 | MHC.EDTECH ---
Certified letter # [id number] sent on 12/11/2024 by this music writer
== END 2024-12-07 20:00 | disposition home or self-care (01) ==
PROVIDERS: Physician Assistant Medical; Emergency Provider Emergency Medicine
DX: O99.322 Drug use complicating pregnancy, second trimester (principal); O20.9 Hemorrhage in early pregnancy, unspecified; O26.892 Other specified pregnancy related conditions, second trimester; R10.9 Unspecified abdominal pain; Z3A.19 19 weeks gestation of pregnancy; Z03.818 Encounter for observation for suspected exposure to other biological agents ruled out
CPT/HCPCS: 0241U; 76815; 80053; 81001; 83735; 84702; 85025; 99284

== ENCOUNTER → 2024-12-07 17:49 | Outpatient (BNV) | payer OTHER, SELFPAY | PROVIDERS: Emergency Provider Emergency Medicine; Visit Provider Specialist | DX: O99.891 Other specified diseases and conditions complicating pregnancy (principal); R10.9 Unspecified abdominal pain; Z3A.19 19 weeks gestation of pregnancy | CPT/HCPCS: 76815 ==

== ENCOUNTER 2025-02-05 14:38 | Emergency (ER) | payer OTHER, SELFPAY ==
--- NOTE | ~2025-02-05 | US_ITS ---
CLINICAL HISTORY: , pelvic pain, vag d c US OB transvaginal limited Comparison: US - US OB PELVIC AND TRANSVAGINAL - 12/07/24 18:56 EDT Findings: Single fetus is demonstrated in cephalic position. heart rate 126 beats per minute. Cervix measures 5 cm long and is closed. Placenta is posterior and grade 2. Amniotic fluid subjectively within normal limits. Right ovary measures 3.4 cm x 1.8 cm x 1.4 cm. Left ovary measures 1.4 cm x 2.1 cm x 1.1 cm. IMPRESSION: 1. Normal limited obstetric ultrasound with viable intrauterine . This document has been electronically signed by: Cecilia Lin MD on 02/05/2025 17:07:32
[2025-02-05 14:40] VITALS: BP 115/72; PULSE 158; RESP 19; TEMP 36.6; O2SAT 100; BMI 28.0
--- NOTE | 2025-02-05 14:40 | ED_ITS ---
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 Related Data Previous Rx's ?Medication ?Instructions ?Recorded pramipexole 0.125 mg tablet 0.125 mg PO TID PRN restless 08/30/23 leg(s) #21 tabs trazodone 50 mg tablet 50 mg PO BEDTIME PRN sleep #10 tabs 08/30/23 buprenorphine 4 mg-naloxone 1 mg 1 film sublingual BID #14 ea 09/06/23 sublingual film (Suboxone) buprenorphine 64 mg/0.18 mL 64 mg (0.18 mL) subcut Q28D #0.18 09/06/23 solution,exten.rel.subcutaneous mL syringe (Brixadi Monthly) buprenorphine 100 mg/0.5 mL 100 mg (0.5 mL) subcut .q 4 weeks 09/11/23 solution,exten.rel.subcutaneous #0.5 mL syringe (Sublocade) vitamins no.144-folic 2 tab PO DAILY #60 tabs 12/07/24 acid 400 mcg chewable tablet () cefadroxil 500 mg capsule 500 mg PO BID 5 days #10 caps 12/08/24 cephalexin 500 mg capsule 500 mg PO BID 7 days #14 caps 02/05/25 clotrimazole 1 % vaginal cream 1 appful vaginal BEDTIME #45 grams 02/05/25 (Clotrimazole-7) Allergies Allergy/AdvReac Type Severity Reaction Status Date / Time No Known Allergies Allergy Verified 02/05/25 14:41 Review of Systems 2 Constitutional: Constitutional: Reports as per HPI [facility] Social History Social History Smoked in Last 30 Days: No Use of substances other than those prescribed or required for medical reasons: No Substance Use Type: Marijuana Advance Directives: No Advance Directives Information Provided: Yes Do you have a plan to hurt others: No Plan Patient : Yes Physical Exam ED Vital Signs: Vital Signs - 24 hr 02/05/25 14:40 02/05/25 16:00 Temperature 98 F 99.8 F Pulse Rate 158 H 109 H Respiratory Rate 19 23 H Blood Pressure 115/72 113/58 L Pulse Oximetry 100 100 Oxygen Delivery Method Room Air Room Air BMI result Body Mass Index 28.0 Const Other: * Gen: ?Overall well-appearing patient * Resp: ?No wheezing rales rhonchi no stridor moving air well * Abd: ?Bowel sounds are present, no tenderness no rebound no rigidity * : Director Medical Surgical present, external vaginal exam unremarkable, she has no CMT, greenish purulent discharge noted, no blood no obvious intravaginal masses * Skin: Warm, dry, intact, * Neuro: ?Alert and oriented x3, moving upper and lower extremities symmetrically, no obvious facial asymmetry noted Course Course Course Narrative: This is a rapid medical exam performed by Gavin Lara NP: Additional HPI, ROS, PE not included below will be deferred to primary provider. Patient is a 24-year-old female 28 weeks gestation ALEX 05/04, heart failure/ left ventricular blockage, presenting with complaint of burning sensation to her vagina/cervix, also describes as a pressure. OB care through [facility]. HR 150- 160s in triage, patient states this is her baseline, however, no documentation of this in EMR. cloud subject matter expert notified and patient brought directly to room 12. Medical Decision Making Medical Decision Making [facility] Narrative: 16:24 I was able to review patient's [facility] records, I do not see any workup for gonorrhea, chlamydia or Trichomonas, it was scheduled to be done after her visit that she has had an December, she does report that she took antibiotics when she presented here with urinary symptoms in November of this year, and she did have follow-up with MFM at [facility] and states she takes her vitamins and iron supplements, states she has not been sexually active, but she does have fairly greenish in purulent discharge I suspect this is likely BV but I sent out a whole panel minus syphilis for her, she does not have any suspicious body lesions to suspect that and she also states she has been sexually active since July of last year. We will obtain ultrasound to make sure she does not have tubo-ovarian abscess, she did not have significant cervical motion tenderness I do not suspect PID, so we will likely start her off on antibiotics for UTI and BV and this she reports to be low risk for STI and physical exam not consistent with PID we will hold off on empiric treatment. Lab Data 02/05/25 16:22 02/05/25 16:22 Labs: Lab Results 02/05/25 Range/Units 16:22 WBC 11.3 H (4.8-10.8) X10*3/uL RBC 3.52 L (4.20-5.50) X10*6/uL Hgb 9.6 L (12.0-16.0) g/dl Hct 28.4 L (37.0-47.0) % MCV 80.7 (80.0-98.0) fL MCH 27.3 (27.0-33.0) pg MCHC 33.8 (31.0-35.0) g/dl RDW 12.3 (11.0-16.0) % Plt Count 229 (160-400) X10*3/uL MPV 10.3 (9.4-12.3) fL Immature Gran % (Auto) 1.1 H (0.0-0.4) % Neut % (Auto) 82.4 H (45-73) % Lymph % (Auto) 10.9 L (20-40) % Kerr % (Auto) 5.2 (2-11) % Eos % (Auto) 0.3 (0-4) % Baso % (Auto) 0.1 (0-2) % Lymph # (Auto) 1.2 (1.2-4.9) X10*3/uL Kerr # (Auto) 0.6 (0.1-1.2) X10*3/uL Eos # (Auto) 0.0 (0.0-0.4) X10*3/uL Baso # (Auto) 0.0 (0.0-0.2) X10*3/uL Abs Immat Gran (auto) 0.12 H (0.00-0.03) X10*3/uL Absolute Neuts (auto) 9.3 H (2.0-8.3) x10*3/uL Absolute Nucleated RBC 0.000 (0.0-0.012) X10*3/uL Nucleated RBC % (auto) 0.0 (0.0-0.2) /100WBC Sodium 137 (135-145) mmol/L Potassium 4.1 D (3.3-5.1) mmol/L Chloride 107 (96-108) mmol/L Carbon Dioxide 21 L (22-29) mmol/L Anion Gap 13 (12-20) BUN 9 (9-16) mg/dL Creatinine 0.56 (0.5-1.4) mg/dL Estim Creat Clear Calc 151.2 Estimated GFR > 60 Random Glucose 73 (60-115) mg/dL Calcium 8.0 L (8.4-10.2) mg/dL Total Bilirubin 0.3 (0.0-1.0) mg/dL AST 17 (5-31) U/L ALT 12 (0-31) U/L Alkaline Phosphatase 98 (39-117) U/L Total Protein 7.0 (6.5-8.0) g/dL Albumin 3.5 (3.5-5.0) g/dL Lipase 24 (8-78) U/L Radiology Impression Radiologist Impression: 1. Normal limited obstetric ultrasound with viable intrauterine . Discharge Plan Discharge Clinical Impression: Creamy vaginal discharge, Vulvovaginal candidiasis Patient Disposition: Home, Self-Care Instructions: Yeast Infection (ED), Vaginal Discharge (ED) Additional Instructions: Please make sure to have follow-up with your financial services counselor, some of the ER vaginal swabs as still pending, but the swab that I did have positive was positive for yeast so I am going to start shoe on clotrimazole 1 vaginal application at bedtime for the next 1 week, and cephalexin 500 mg twice a day for urinary symptoms, please call your ob/gyn tomorrow, and if your cultures come back positive for gonorrhea chlamydia that will not be available at this time he will get a phone call from us as well. Ultrasound revealed that is a viable with normal heart rate Prescriptions: New clotrimazole [Clotrimazole-7] 1 % cream 1 appful vaginal BEDTIME Qty: 45 0RF cephalexin 500 mg capsule 500 mg PO BID 7 Days Qty: 14 0RF No Action Sublocade 100 mg/0.5 mL solution, extended rel syringe 100 mg subcut .q 4 weeks Qty: 0.5 3RF 400 mcg tablet,chewable 2 tab PO DAILY Qty: 60 0RF cefadroxil 500 mg capsule 500 mg PO BID 5 Days Qty: 10 0RF buprenorphine-naloxone [Suboxone] 4-1 mg film 1 film sublingual BID Qty: 14 0RF Brixadi 64 mg/0.18 mL solution, extended rel syringe 64 mg subcut Q28D Qty: 0.18 5RF pramipexole 0.125 mg tablet 0.125 mg PO TID PRN (Reason: restless leg(s)) Qty: 21 0RF trazodone 50 mg tablet 50 mg PO BEDTIME PRN (Reason: sleep) Qty: 10 0RF Print Language: Kazakh
--- NOTE | 2025-02-05 14:44 | ECG_ITS ---
Test Reason : TACHYCARDIA Blood Pressure : */* mmHG Vent. Rate : 138 BPM Atrial Rate : * BPM P-R Int : * ms QRS Dur : 116 ms QT Int : 372 ms P-R-T Axes : * 34 17 degrees QTcB Int : 563 ms Atypical Atrial flutter with 2 to 1 block or Atrial tachycardia Cannot rule out Anteroseptal infarct , age undetermined Abnormal ECG No previous ECGs available Referred By: Raquel Lara Electronically Signed By: ZEESHAN BANKS MD
[2025-02-05 16:00] VITALS: BP 113/58; PULSE 109; RESP 23; TEMP 37.7; O2SAT 100
[2025-02-05 16:29] LABS: MANUAL DIFF FLAG NO
[2025-02-05 16:32] LABS: Basophils Percent Auto 0.1 % (0-2); Eosinophils Percent Auto 0.3 % (0-4); Hematocrit 28.4 % (37.0-47.0); Hemoglobin 9.6 g/dl (12.0-16.0); Imm Gran Abs Auto 0.12 X10*3/uL (0.00-0.03); Imm Gran Pct Auto 1.1 % (0.0-0.4); Lymphocytes Absolute Auto 1.2 X10*3/uL (1.2-4.9); Lymphocytes Percent Auto 10.9 % (20-40); Mean Corpuscular HGB Conc 33.8 g/dl (31.0-35.0); Mean Corpuscular Hemoglobin 27.3 pg (27.0-33.0); Mean Corpuscular Volume 80.7 fL (80.0-98.0); Mean Platelet Volume 10.3 fL (9.4-12.3); Monocytes Absolute Auto 0.6 X10*3/uL (0.1-1.2); Monocytes Percent Auto 5.2 % (2-11); Neutrophils Absolute Auto 9.3 x10*3/uL (2.0-8.3); Neutrophils Percent Auto 82.4 % (45-73); Platelet Count 229 X10*3/uL (160-400); Red Blood Count 3.52 X10*6/uL (4.20-5.50); Red Cell Distribution Width 12.3 % (11.0-16.0); White Blood Count 11.3 X10*3/uL (4.8-10.8)
[2025-02-05 17:01] LABS: Alanine Aminotransferase 12 U/L (0-31); Albumin Level 3.5 g/dL (3.5-5.0); Alkaline Phosphatase 98 U/L (39-117); Anion Gap 13 (12-20); Aspartate Amino Transferase 17 U/L (5-31); Bilirubin Total 0.3 mg/dL (0.0-1.0); Blood Urea Nitrogen 9 mg/dL (9-16); Carbon Dioxide 21 mmol/L (22-29); Chloride 107 mmol/L (96-108); Creatinine Clr Calc Pharmacy 151.2; Estimated Glomerular Filt Rate > 60; Glucose Random 73 mg/dL (60-115); Lipase 24 U/L (8-78); Potassium 4.1 mmol/L (3.3-5.1); Sodium 137 mmol/L (135-145)
[2025-02-05 17:58] VITALS: BP 113/58; PULSE 109; RESP 23; TEMP 37.7; O2SAT 100
[2025-02-05 17:58] LABS: Bacterial Vaginosis PCR POSITIVE (Negative); Candida Group PCR DETECTED (Not Detect); Candida glab krusei PCR NOT DETECTED (Not Detect); Trichomonas vaginalis PCR NOT DETECTED (Not Detect)
== END 2025-02-05 17:59 | disposition home or self-care (01) ==
PROVIDERS: Emergency Provider Emergency Medicine
DX: O98.813 Other maternal infectious and parasitic diseases complicating pregnancy, third trimester (principal); N89.8 Other specified noninflammatory disorders of vagina; R00.0 Tachycardia, unspecified; I48.92 Unspecified atrial flutter; Z79.899 Other long term (current) drug therapy
CPT/HCPCS: 36415; 76815; 80053; 81515; 83690; 85025; 87491; 87591; 93005; 99284

== ENCOUNTER → 2025-02-05 14:44 | Outpatient (BNV) | payer OTHER, SELFPAY | PROVIDERS: Emergency Provider Emergency Medicine; Visit Provider Internal Medicine Cardiovascular Disease | DX: I48.4 Atypical atrial flutter (principal) | CPT/HCPCS: 93010 ==

== ENCOUNTER → 2025-02-05 16:01 | Outpatient (BNV) | payer OTHER, SELFPAY | PROVIDERS: Emergency Provider Emergency Medicine; Visit Provider Specialist | DX: R10.2 Pelvic and perineal pain (principal) | CPT/HCPCS: 76815 ==